=== PATIENT | female | born 1975 | race Two or more races ===

== ENCOUNTER → 2024-07-05 | Outpatient (CLI) | payer BC, SELFPAY ==
--- NOTE | 2024-07-05 14:20 | XR_ITS ---
Examination: Bone densitometry Date and time of exam:July 05, 2024 1430 hours INDICATIONS: Perimenopausal, history forearm fracture Technique: Lumbar spine and hip total bone mineralization values of an calculated. Peak reference and age match control results have been displayed. Findings: Lumbar spine total bone mineralization is0.951 gm/cm2. This is 0.9 standard deviations below peak reference. This is 0.2 standard deviations low age-matched controls. Hip total bone mineralization is 1.009 gm/cm2 This is 0.3 standard deviations above peak reference. This is 0.7 standard deviations above age-matched controls Impression: There is normal mineralization based on lumbar spine measurements. There is normal mineralization based on hip measurements Lumbar mineralization is decreased 0.3% compared with September 06, 2014 Hip mineralization is increase 4.8% compared with September 06, 2014
== END | disposition home or self-care (01) ==
LOC: CDIM 14:01
PROVIDERS: Referring Provider Family Medicine; Visit Provider Family Medicine
DX: M54.2 Cervicalgia (principal); Z87.81 Personal history of (healed) traumatic fracture
CPT/HCPCS: 77080

== ENCOUNTER → 2024-12-08 | Outpatient (CLI) | payer BC, SELFPAY ==
--- NOTE | 2024-12-08 09:54 | XR_ITS ---
Examination: Breast ultrasound, unilateral, right complete Date and time of exam: December 08, 2024 1011 hours INDICATIONS: Abnormal outside mammogram Technique: Real-time minaya scale ultrasonographic imaging performed right breast including all 4 quadrants as well as nipple retroareolar and axillary region. Findings: 2:00 nodule circumscribed 8 x 9 mm 5:00 nodule circumscribed 9 x 10 mm IMPRESSION: BI-RADS Category 3: Probably benign findings One additional 6 month right breast sonogram follow-up is needed to document stability of nodules described above
--- NOTE | 2024-12-08 14:56 | XR_ITS ---
Examination: Diagnostic digital mammography, unilateral, right Computer aided detection 3-D breast Tomosynthesis, unilateral Date and time of exam: December 08, 2024, 1501 hours INDICATIONS: Outside mammogram October 06, 2024 asymmetry right breast middle depth central to the nipple Technique: Nonmagnified MLO, CC views of the right breast have been obtained, reconstructed from 3-D Tomosynthesis images. R2 computer aided detection program utilized for evaluation of suspicious masses and/or abnormal calcifications. 3-D Tomosynthesis images obtained. Findings: The breast is heterogeneously dense, which may obscure small masses 5:00 circumscribed nodule 6 mm Impression: BI-RADS category 3: Probably benign findings Recommend 1 additional 6 month right mammogram follow-up to document stability of 5:00 nodule right breast
== END | disposition home or self-care (01) ==
PROVIDERS: PCP Family Medicine; Referring Provider Specialist; Visit Provider Specialist
DX: R92.331 Mammographic heterogeneous density, right breast (principal); N63.14 Unspecified lump in the right breast, lower inner quadrant
CPT/HCPCS: 76641; 77061; 77065; G0279